=== PATIENT | male | born 1980 | race Hispanic/Latino ===

== ENCOUNTER 2020-12-01 10:05 | Emergency (ER) | payer OTHER, SELFPAY | END 2020-12-01 10:40 | disposition home or self-care (01) | LOC: MADERS 10:05 | DX: S00.01XA Abrasion of scalp, initial encounter (principal); K21.9 Gastro-esophageal reflux disease without esophagitis; F17.210 Nicotine dependence, cigarettes, uncomplicated; V86.99XA Unspecified occupant of other special all-terrain or other off-road motor vehicle injured in nontraffic accident, initial encounter | CPT/HCPCS: 99283 ==